=== PATIENT | male | born 1945 ===

== ENCOUNTER 2017-06-28 07:08 | Outpatient (CLI) | payer MEDICARE | END 2017-06-28 23:59 | disposition home or self-care (01) | LOC: DIABETIC 07:08 | PROVIDERS: ATTEND Family Medicine | DX: E11.9 Type 2 diabetes mellitus without complications (principal) | CPT/HCPCS: G0108 ==

== ENCOUNTER 2017-12-27 00:44 | Outpatient (CLI) | payer MEDICARE | END 2017-12-27 23:59 | disposition home or self-care (01) | LOC: DIABETIC 00:44 | PROVIDERS: ATTEND Family Medicine | DX: E11.9 Type 2 diabetes mellitus without complications (principal); Z79.899 Other long term (current) drug therapy | CPT/HCPCS: G0108 ==

== ENCOUNTER 2018-06-27 04:19 | Outpatient (CLI) | payer MEDICARE | END 2018-06-27 23:59 | disposition home or self-care (01) | LOC: DIABETIC 04:19 | PROVIDERS: ATTEND Family Medicine | DX: E11.9 Type 2 diabetes mellitus without complications (principal); Z79.82 Long term (current) use of aspirin | CPT/HCPCS: G0108 ==

== ENCOUNTER 2018-12-19 04:55 | Outpatient (CLI) | payer MEDICARE | END 2018-12-19 23:59 | disposition home or self-care (01) | LOC: DIABETIC 04:55 | PROVIDERS: ATTEND Family Medicine | DX: E11.9 Type 2 diabetes mellitus without complications (principal); Z79.82 Long term (current) use of aspirin; Z79.899 Other long term (current) drug therapy | CPT/HCPCS: G0108 ==

== ENCOUNTER 2019-07-09 04:06 | Outpatient (CLI) | payer MEDICARE | END 2019-07-09 23:59 | disposition home or self-care (01) | LOC: DIABETIC 04:06 | PROVIDERS: ATTEND Family Medicine | DX: E11.9 Type 2 diabetes mellitus without complications (principal) | CPT/HCPCS: G0108 ==